=== PATIENT | female | born 1950 | race Caucasian/White ===

== ENCOUNTER 2024-02-02 14:08 | Emergency (ER) | payer MEDICARE, MEDICAID, SELFPAY ==
[2024-02-02 14:09] VITALS: BP 136/78; PULSE 68; RESP 16; TEMP 36.6; O2SAT 98; BMI 22.3
--- NOTE | 2024-02-02 14:16 | CT_ITS ---
FINAL REPORT TECHNIQUE: Axial images were obtained of the lumbar spine by computed tomography. Coronal and sagittal reconstruction process performed. This study was performed with techniques to keep radiation doses as low as reasonably achievable (ALARA). Individualized dose reduction techniques using automated exposure control or adjustment of mA and/or kV according to the patient''s size were employed. CLINICAL HISTORY: subacute severe back pain COMPARISON: None FINDINGS: Lumbar vertebrae show normal height. There is moderate anterior osteophyte formation at L1-2, L2-3, and L5-S1. There is no malalignment. L1-2: Asymmetric left facet hypertrophy. Neural foramina are adequately patent. L2-3: No significant spinal canal compromise or neural foraminal narrowing. L3-4: Moderate bilateral facet hypertrophy. No significant spinal canal compromise or neural foraminal narrowing. L4-5: Mild endplate hypertrophy. Mild bilateral neural foraminal narrowing. L5-S1: Moderate endplate hypertrophy. Marked facet hypertrophy eccentric to the left. [id number] bilateral neural foraminal narrowing. IMPRESSION: Multilevel degenerative disc disease as above, most pronounced at L5-S1. Reviewed, Interpreted and Dictated by Matt Ortiz MD Transcribed by Amanda Sim Authenticated and [facility]
--- NOTE | 2024-02-02 14:16 | CT_ITS ---
FINAL REPORT TECHNIQUE: Axial images were obtained of the thoracic spine by computed tomography. Coronal and sagittal reconstruction process performed. This study was performed with techniques to keep radiation doses as low as reasonably achievable (ALARA). Individualized dose reduction techniques using automated exposure control or adjustment of mA and/or kV according to the patient's size were employed. CLINICAL HISTORY: subacute, severe back pain COMPARISON: None FINDINGS: There is mild anterior osteophyte formation in the midthoracic spine. There is ossification of the anterior longitudinal ligament. There is small posterior osteophyte formation eccentric to the left in the upper thoracic spine. There is mild spinal canal compromise best seen on image 47 of series 3. IMPRESSION: Hypertrophic degenerative changes. Reviewed, Interpreted and Dictated by Matt Ortiz MD Transcribed by Amanda Sim Authenticated and [facility]
--- NOTE | 2024-02-02 14:35 | ED_ITS ---
Discharge Plan Disposition Patient Disposition: Home, Self-Care Condition: Good Prescriptions Prescriptions: New ketorolac 10 mg tablet 10 mg PO Q8H PRN (Reason: pain) 2 Days Qty: 14 0RF methocarbamol 750 mg tablet 750 mg PO Q8H PRN (Reason: pain) Qty: 20 0RF Referrals Follow up/Referrals: Darshan Gonzales MD [Primary Care Provider] - See instructions Activity Restrictions/Add. Instructions Additional Instructions/Restrictions: You were evaluated in the emergency department today. Please follow-up closely with your primary care provider for further assessment and for management of your chronic pain. They can refill your chronic medications for you. Return to the emergency department for new or worsening symptoms. Clinical Impressions Clinical Impression: Chronic pain Instructions Patient Instructions: DI for Chronic Pain -- Adult Discharge ED Provider: Nelly Anguiano General Adult HPI <Luis Carlos Tipton MD - Last Filed: 02/02/24 15:14> General Chief complaint: PAIN Stated complaint: weakness Time Seen by Provider: 02/02/24 14:10 History of Present Illness HPI narrative: Please note that above description of symptoms, in this electronic medical record under categorization of recalled from ER triage doctor by RN are reflective of an initial nursing assessment, however, is not reflective of my full history and physical exam that was personally taken and clarified. Consequentially, this preceding description of symptoms, which may include the patient's categorized chief complaint in the EMR, do not reflect my personal clinical impression, and the ultimate description of history of present illness and patient stated complaints should be deferred to this section of the note. Unless stated otherwise or congruent with this section of the note, additional signs, symptoms, or incongruence should be interpreted as inaccurate with my clinical impression. Related Data Previous Rx's Medication Instructions Recorded ketorolac 10 mg tablet 10 mg PO Q8H PRN pain 2 days #14 02/02/24 tabs methocarbamol 750 mg tablet 750 mg PO Q8H PRN pain #20 tabs 02/02/24 Allergies Allergy/AdvReac Type Severity Reaction Status Date / Time Latex, Natural Rubber Allergy Intermediate Rash/Itchin Verified 02/02/24 16:21 g/Burning Penicillins Allergy Intermediate Rash/Itching/Burning Verified 02/02/24 16:21 sensation ciprofloxacin Allergy Verified 02/02/24 17:17 codeine Allergy Verified 02/02/24 17:17 diazepam [From Valium] Allergy Verified 02/02/24 17:17 erythromycin base Allergy Verified 02/02/24 17:17 [From Erythrocin] temazepam [From Restoril] Allergy Verified 02/02/24 17:17 wheat AdvReac Verified 02/02/24 17:17 PFSH <Luis Carlos Tipton MD - Last Filed: 02/02/24 15:14> [facility] Disclaimer: The information contained in this section may have been updated after the patient was seen, as this information can be updated by other users. Social History (Updated 02/02/24 @ 15:14 by Luis Carlos Tipton MD) Smoking Status: Smoker, status unknown alcohol intake: never current occupational status: unemployed Travel in the last 8 weeks: None <Luis Carlos Tipton MD - Last Filed: 02/02/24 15:14> ROS Obtained: Yes All systems reviewed & no additional complaints except as documented Physical Exam <Luis Carlos Tipton MD - Last Filed: 02/02/24 15:14> General General appearance: alert and in no apparent distress Head Head exam: atraumatic and normocephalic Eye Eye exam: Present normal appearance, PERRL and EOMI ENT ENT exam: Present mucous membranes dry Neck Neck exam: Present normal inspection, full ROM and trachea midline Respiratory Respiratory exam: Present normal lung sounds bilaterally; Absent respiratory distress, wheezes, stridor, accessory muscle use or prolonged expiratory phase Cardiovascular Cardiovascular exam: Present regular rate and normal rhythm Abdominal Exam Abdominal exam: Present soft; Absent distention, tenderness, guarding, rebound or rigidity Extremities Exam Extremities exam: Absent edema Back Exam Back exam: Present other (No evidence of decubitus ulcer. She does have point bony tenderness at thoracic spine with associated spinous process bulge. Unknown if this is acute or chronic.) Neurological Exam Neurological exam: Present alert, oriented X3 and motor sensory deficit (Right- sided weakness, this is chronic, per patient); Absent CN II-XII intact or normal gait Skin Skin exam: Present warm and dry; Absent diaphoresis or erythema Medical Decision Making <Luis Carlos Tipton MD - Last Filed: 02/02/24 15:14> Medical Records Medical records reviewed: Yes I reviewed the patient's medical records. Jaiden Inquiry Pt receiving controlled substance: No Jaiden was queried for this patient: No Vital Signs: 02/02/24 14:09 02/02/24 19:04 Temperature 97.9 F 98.0 F Temperature Source Oral Oral Pulse Rate 65 Pulse Rate [Radial] 68 Respiratory Rate 16 18 Blood Pressure 128/70 Blood Pressure [Right Arm] 136/78 Blood Pressure Mean [Right Arm] 97 Blood Pressure Source Automatic Cuff Blood Pressure Source [Right Arm] Automatic Cuff Blood Pressure Position Sitting Blood Pressure Position [Right Arm] Sitting 02 Sat by Pulse Oximetry 98 Oxygen Delivery Method Room Air Room Air Lab Data Lab Results 02/02/24 15:12: Sodium 143, Potassium 3.2 L, Chloride 104, Carbon Dioxide 33 H, Anion Gap 9.2, BUN 7, Creatinine 0.60, Estimated Creat Clear 47, Estimated GFR 98, Est GFR ( Amer) 119, Glucose 110 H, Calcium 9.8, Magnesium 1.9, Total Bilirubin 0.9, AST 25, ALT 21, Alkaline Phosphatase 115, Total Protein 8.3 H, Albumin 4.4, Globulin 3.9 H, Albumin/Globulin Ratio 1.1 02/02/24 15:42: WBC 10.5, RBC 4.94, Hgb 14.1, Hct 44.8, MCV 90.7, MCH 28.5, MCHC 31.5 L, RDW 14.5, Plt Count 227, MPV 9.7, Neut % (Auto) 65.8, Lymph % (Auto) 28.4, Burnet % (Auto) 4.2, Eos % (Auto) 1.0, Baso % (Auto) 0.6, Neut # (Auto) 6.9, Lymph # (Auto) 3.0, Burnet # (Auto) 0.4, Eos # (Auto) 0.1, Baso # (Auto) 0.1 02/02/24 17:05: Urine Color Yellow, Urine Appearance Clear, Urine pH 6.0, Ur Specific [place] 1.020, Urine Protein Negative, Urine Glucose (UA) Negative, Urine Ketones Negative, Urine Blood Trace-i, Urine Nitrate Negative, Urine Bilirubin Negative, Urine Urobilinogen 0.2, Ur Leukocyte Esterase Trace, Urine RBC None, Urine WBC 3-5, Ur Squamous Epith Cells 20-50, Urine Bacteria Trace 02/02/24 15:42 02/02/24 15:12 Orders (Tests/Meds): ED MEDICATIONS Discontinued Medications Generic Name Dose Route Start Last Admin Trade Name Riccardo PRN Reason Stop Dose Admin Acetaminophen 1,000 mg 02/02/24 14:16 02/02/24 16:30 Acetaminophen 1,000mg/100ml Vial IV 02/02/24 14:17 1,000 mg ONCE ONE Administration Ketorolac Tromethamine 15 mg 02/02/24 14:16 02/02/24 16:30 Ketorolac 30mg/Ml Vial IV 02/02/24 14:17 15 mg ONCE ONE Administration Methocarbamol 750 mg 02/02/24 14:16 02/02/24 17:11 Methocarbamol 500mg Tablet PO 02/02/24 14:17 750 mg ONCE ONE Administration ORDERS Category Date Time Status CT lumbar spine wo con Stat Cat Scan 02/02/24 14:[address] thoracic spine wo con Stat Cat Scan 02/02/24 14:16 Taken CBC w/Auto Diff [Complete Blood Count Auto Diff] Stat Lab 02/02/24 15:42 Completed CMP [Comprehensive Metabolic Panel] Stat Lab 02/02/24 15:12 Completed Magnesium Stat Lab 02/02/24 15:12 Completed UA [Urinalysis and Microscopic] Stat Lab 02/02/24 17:05 Completed Medical Decision Narrative: 73-year-old female history of hypertension, hyperlipidemia, CVA x 2 currently on aspirin presenting with multiple complaints. Patient states that she was discharged from long-term care facility on January 16, 2024. Was only discharged home with 2 days of medications, unable to obtain medications thereafter. Patient called EMS to be brought in for emergency evaluation for chronic back and leg cramping. No acute complaints. States this has been going on for a while. Used to have a decubitus ulcer, this was debrided, has been well-healed after following with wound care. History was obtained via conversation with patient and EMS. On arrival, patient hemodynamically stable, alert, oriented x4, appropriate, GCS 15, moving all extremities spontaneously, pupils equal and reactive to light. Full physical exam performed and significant for patient at neurologic baseline with right-sided deficits. Spinal tenderness at thoracolumbar spine, obvious bony protrusion overlying thoracic spine, but patient states this is chronic. No acute pain. No acute decubitus ulcer. Patient alert, oriented, answering questions appropriately. Differential includes muscle spasms, metabolic abnormality, dehydration, UTI, neglect, inability to perform activities of daily living, acute on chronic debility/deconditioning, among others. Case management was contacted and case was discussed at length, pending their recommendations. Patient was given fluid bolus for symptomatic management and correction of underlying abnormalities. Prior to imaging, labs, care handed off to oncoming physician. Printing Manager disclaimer: Much of this encounter note is an electronic facility security officer spoken language to printed text. Electronic facility security officer of the spoken language may permit errors. Although I have reviewed the note, some errors may still exist. <Nelly Anguiano, DO - Last Filed: 02/02/24 20:28> Vital Signs: 02/02/24 14:09 02/02/24 19:04 Temperature 97.9 F 98.0 F Temperature Source Oral Oral Pulse Rate 65 Pulse Rate [Radial] 68 Respiratory Rate 16 18 Blood Pressure 128/70 Blood Pressure [Right Arm] 136/78 Blood Pressure Mean [Right Arm] 97 Blood Pressure Source Automatic Cuff Blood Pressure Source [Right Arm] Automatic Cuff Blood Pressure Position Sitting Blood Pressure Position [Right Arm] Sitting 02 Sat by Pulse Oximetry 98 Oxygen Delivery Method Room Air Room Air Lab Data Lab Results 02/02/24 15:12: Sodium 143, Potassium 3.2 L, Chloride 104, Carbon Dioxide 33 H, Anion Gap 9.2, BUN 7, Creatinine 0.60, Estimated Creat Clear 47, Estimated GFR 98, Est GFR ( Amer) 119, Glucose 110 H, Calcium 9.8, Magnesium 1.9, Total Bilirubin 0.9, AST 25, ALT 21, Alkaline Phosphatase 115, Total Protein 8.3 H, Albumin 4.4, Globulin 3.9 H, Albumin/Globulin Ratio 1.1 02/02/24 15:42: WBC 10.5, RBC 4.94, Hgb 14.1, Hct 44.8, MCV 90.7, MCH 28.5, MCHC 31.5 L, RDW 14.5, Plt Count 227, MPV 9.7, Neut % (Auto) 65.8, Lymph % (Auto) 28.4, Burnet % (Auto) 4.2, Eos % (Auto) 1.0, Baso % (Auto) 0.6, Neut # (Auto) 6.9, Lymph # (Auto) 3.0, Burnet # (Auto) 0.4, Eos # (Auto) 0.1, Baso # (Auto) 0.1 02/02/24 17:05: Urine Color Yellow, Urine Appearance Clear, Urine pH 6.0, Ur Specific [place] 1.020, Urine Protein Negative, Urine Glucose (UA) Negative, Urine Ketones Negative, Urine Blood Trace-i, Urine Nitrate Negative, Urine Bilirubin Negative, Urine Urobilinogen 0.2, Ur Leukocyte Esterase Trace, Urine RBC None, Urine WBC 3-5, Ur Squamous Epith Cells 20-50, Urine Bacteria Trace Orders (Tests/Meds): ED MEDICATIONS Discontinued Medications Generic Name Dose Route Start Last Admin Trade Name Riccardo PRN Reason Stop Dose Admin Acetaminophen 1,000 mg 02/02/24 14:16 02/02/24 16:30 Acetaminophen 1,000mg/100ml Vial IV 02/02/24 14:17 1,000 mg ONCE ONE Administration Ketorolac Tromethamine 15 mg 02/02/24 14:16 02/02/24 16:30 Ketorolac 30mg/Ml Vial IV 02/02/24 14:17 15 mg ONCE ONE Administration Methocarbamol 750 mg 02/02/24 14:16 02/02/24 17:11 Methocarbamol 500mg Tablet PO 02/02/24 14:17 750 mg ONCE ONE Administration ORDERS Category Date Time Status CT lumbar spine wo con Stat Cat Scan 02/02/24 14:[address] thoracic spine wo con Stat Cat Scan 02/02/24 14:16 Taken CBC w/Auto Diff [Complete Blood Count Auto Diff] Stat Lab 02/02/24 15:42 Completed CMP [Comprehensive Metabolic Panel] Stat Lab 02/02/24 15:12 Completed Magnesium Stat Lab 02/02/24 15:12 Completed UA [Urinalysis and Microscopic] Stat Lab 02/02/24 17:05 Completed Medical Decision Narrative: 73-year-old female history of hypertension, hyperlipidemia, CVA x 2 currently on aspirin presenting with multiple complaints. Patient states that she was discharged from long-term care facility on January 16, 2024. Was only discharged home with 2 days of medications, unable to obtain medications thereafter. Patient called EMS to be brought in for emergency evaluation for chronic back and leg cramping. No acute complaints. States this has been going on for a while. Used to have a decubitus ulcer, this was debrided, has been well-healed after following with wound care. History was obtained via conversation with patient and EMS. On arrival, patient hemodynamically stable, alert, oriented x4, appropriate, GCS 15, moving all extremities spontaneously, pupils equal and reactive to light. Full physical exam performed and significant for patient at neurologic baseline with right-sided deficits. Spinal tenderness at thoracolumbar spine, obvious bony protrusion overlying thoracic spine, but patient states this is chronic. No acute pain. No acute decubitus ulcer. Patient alert, oriented, answering questions appropriately. Differential includes muscle spasms, metabolic abnormality, dehydration, UTI, neglect, inability to perform activities of daily living, acute on chronic debility/deconditioning, among others. Case management was contacted and case was discussed at length, pending their recommendations. Patient was given fluid bolus for symptomatic management and correction of underlying abnormalities. Prior to imaging, labs, care handed off to oncoming physician. Printing Manager disclaimer: Much of this encounter note is an electronic facility security officer spoken language to printed text. Electronic facility security officer of the spoken language may permit errors. Although I have reviewed the note, some errors may still exist. Silvio DO: On multiple subsequent reassessments, the patient is resting comfortably. Labs and workup reassuring. No acutely concerning abnormalities. I feel the patient likely has chronic pain. We reviewed her prior medications, which contain a lot of controlled substances. At this time, I do not feel comfortable refilling these medications for her chronic symptoms. I advised that she follow-up closely with her primary care provider for this, and family advised that she has an appointment tomorrow for follow-up. At this time, patient was deemed to be appropriate for discharge home. Strict return precautions were given, and the patient was discharged after all questions were answered to the care of family. Critical Care <Luis Carlos Tipton MD - Last Filed: 02/02/24 15:14> Critical Care Time Critical Care Time: No
[2024-02-02 15:31] LABS: Chloride 104 mmol/L (98-107); Sodium 143 mmol/L (136-145)
[2024-02-02 15:32] LABS: Potassium 3.2 mmoL/L (3.5-5.1)
[2024-02-02 15:34] LABS: Alanine Aminotransferase 21 U/L (12-78); Alkaline Phosphatase 115 U/L (38-126); Anion Gap 9.2 mEq/L (5-15); Aspartate Amino Transferase 25 U/L (14-36); Bilirubin,Total 0.9 mg/dl (0.2-1.3); Blood Urea Nitrogen 7 mg/dl (7-17); Carbon Dioxide 33 mmol/L (22.0-30.0); Creatinine Clearance Estimated 47 mL/min (50-200); Estimated Glomerular Filt Rate 98 ml/min (>60); GFR (African American) 119 ML/MIN (>60); Magnesium 1.9 mg/dl (1.6-2.3)
[2024-02-02 15:35] LABS: Albumin Level 4.4 g/dl (3.5-5.0); Albumin/Globulin Ratio 1.1 (1.1-1.8); Calcium 9.8 mg/dl (8.4-10.2); Globulin 3.9 g/dL (1.3-3.2); Glucose 110 mg/dl (74-100); Total Protein,Serum 8.3 g/dl (6.3-8.2)
--- NOTE | 2024-02-02 15:44 | PC.NURSE ---
Patient unable to tell me her medication allergies.
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
[2024-02-02 15:53] LABS: Basophils # 0.1 K/mm3 (0-0.2); Basophils % 0.6 % (0.1-2.0); Eosinophils # 0.1 K/mm3 (0.0-0.4); Hematocrit 44.8 % (37.0-47.0); Hemoglobin 14.1 g/dL (12.2-16.2); Lymphocytes % 28.4 % (10-50); Mean Corpuscular HGB Conc 31.5 g/dL (31.8-35.4); Mean Corpuscular Hemoglobin 28.5 pg (27.0-31.2); Mean Corpuscular Volume 90.7 fl (81-99); Mean Platelet Volume 9.7 fl (7.4-10.4); Monocytes # 0.4 K/mm3 (0.1-1.0); Monocytes % 4.2 % (1.7-9.3); Neutrophils # 6.9 K/mm3 (1.8-7.8); Neutrophils % 65.8 % (37.0-80.0); Platelet Count 227 K/mm3 (142-424); Red Blood Count 4.94 M/mm3 (4.20-5.40); Red Cell Distribution Width 14.5 % (11.5-17.5); White Blood Count 10.5 K/mm3 (4.8-10.8)
--- NOTE | 2024-02-02 16:25 | PC.NURSE ---
Called [facility] in [place], [place] where the patient was recently admitted. Requested a recent med list and drug allergies. Staff stated they were advised to not give any information out on the patient. Stating the patient left AMA and their waterworks supervisor said not to give out information.
[2024-02-02] MEDS: ACETAMINOPHEN 1,000MG/100ML VIAL 1000 MG IV (16:30)
[2024-02-02] MEDS: KETOROLAC 30MG/ML VIAL 15 MG IV (16:30)
[2024-02-02] MEDS: METHOCARBAMOL 500MG TABLET 750 MG PO (17:11)
[2024-02-02 17:50] LABS: Microscopic, Urine URINE MICROSCOPIC (MICROSCOPIC)
[2024-02-02 17:54] LABS: Appearance,Urine CLEAR (Clear); Bilirubin,Urine Negative (Negative); Blood, Urine TRACE-I (Negative); Color,Urine YELLOW (Yellow); Glucose,Urine (UA) Negative (Negative); Ketones,Urine Negative (Negative); Leukocyte Esterase,Urine TRACE (Negative); Nitrate,Urine Negative (Negative); Protein,Urine Negative (Negative); Urobilinogen,Urine 0.2 EU/dl (0.2)
[2024-02-02 18:17] LABS: Bacteria,Urine Trace /lpf; Squamous Epithelial Cell,Urine 20-50 #/hpf (0-5)
[2024-02-02 19:04] VITALS: BP 128/70; PULSE 65; RESP 18; TEMP 36.7; O2SAT 96
== END 2024-02-02 19:05 | disposition home or self-care (01) ==
PROVIDERS: Emergency Medicine; Emergency Provider Emergency Medicine; PCP Family Medicine
DX: M54.9 Dorsalgia, unspecified; E87.6 Hypokalemia; M62.838 Other muscle spasm; G89.29 Other chronic pain
CPT/HCPCS: 72128; 72131; 80053; 81001; 83735; 85025; 96374; 96375; 99285; J0131